=== PATIENT | female | born 1965 | race Two or more races ===

== ENCOUNTER 2019-09-16 19:30 | Emergency (ER) | payer MEDICARE, OTHER ==
[2019-09-16] MEDS ORDERED: Sodium Chloride 0.9% 2.5 ML Syringe FLUSH PRN (19:42)
[2019-09-16] MEDS ORDERED: Sodium Chloride 0.9% 10 ML Syringe FLUSH PRN (19:42)
[2019-09-16] MEDS ORDERED: Sodium Chloride 0.9% 1,000 ML IV SCH (19:45)
--- NOTE | 2019-09-16 19:46 | EDM.PDOC ---
ED HPI GENERAL MEDICAL PROBLEM - General Chief Complaint: Neuro Symptoms/Deficits Stated Complaint: POSSIBLE TIA Time Seen by Provider: 09/16/19 19:40 - History of Present Illness INITIAL COMMENTS - FREE TEXT/NARRATIVE: HISTORY AND PHYSICAL: History of present illness: Patient's 53-year-old white female with past medical history significant for traumatic brain injury who presents with a concern of a episode described as nonverbal. And unresponsive this did not involve any loss of consciousness patient did not have seizure activity witnessed and it did resolve spontaneously on arrival here patient's awake alert and oriented with no complaints and no neurological signs or symptoms. There's been no reported chest pain shortness breath fever chills or other patient states patient never had seizures related to her traumatic brain injury and that the valproic acid she's been prescribed has been for migraines and some slight cognitive challenges post TBI Review of systems: As per history of present illness and below otherwise all systems reviewed and negative. Past medical history: As per history of present illness and as reviewed below otherwise noncontributory. Surgical history: As per history of present illness and as reviewed below otherwise noncontributory. Social history: No reported history of drug or alcohol abuse. Family history: As per history of present illness and as reviewed below otherwise noncontributory. Physical exam: HEENT: Atraumatic, normocephalic, pupils reactive, negative for conjunctival pallor or scleral icterus, mucous membranes moist, throat clear, neck supple, nontender, trachea midline. Lungs: Clear to auscultation, breath sounds equal bilaterally, chest nontender. Heart: S1S2, regular, negative for clicks, rubs, or JVD. Abdomen: Soft, nondistended, nontender. Negative for masses or hepatosplenomegaly. Negative for costovertebral tenderness. Pelvis: Stable nontender. Genitourinary: Deferred. Rectal: Deferred. Extremities: Atraumatic, negative for cords or calf pain. Neurovascular unremarkable. Neuro: Awake, alert, oriented. Cranial nerves II through XII unremarkable. Cerebellum unremarkable. Motor and sensory unremarkable throughout. Exam nonfocal. Diagnostics: CBC CMP EKG chest x-ray CT brain prolactin level UA valproic acid level Therapeutics: IV O2 monitor Impression: #1 transient ischemic attack #2 history of seizure disorder #3 history of traumatic brain injury Definitive disposition and diagnosis as appropriate pending reevaluation and review of above. Headache Pain Score (Numeric/FACES): 2 - Related Data Allergies Allergy/AdvReac Type Severity Reaction Status Date / Time Sulfa (Sulfonamide Allergy Rash Verified 09/16/19 19:58 Antibiotics) ED ROS GENERAL - Review of Systems Review Of Systems: ROS reveals no pertinent complaints other than HPI. ED EXAM, GENERAL - Physical Exam Exam: See Below (See dictation) Course - Vital Signs Last Recorded V/S: Last Vital Signs Temp 36.9 C 09/16/19 19:39 Pulse 80 09/16/19 19:39 Resp 16 09/16/19 19:39 BP 146/71 H 09/16/19 19:39 Pulse Ox 96 09/16/19 19:39 - Orders/Labs/Meds Orders: Active Orders 24 hr Category Date Time Status Blood Glucose Check, Bedside [RC] ONETIME Care 09/16/19 19:41 Active Cardiac Monitoring [RC] . DIRECTED Care 09/16/19 19:41 Active EKG Documentation Completion [RC] STAT Care 09/16/19 19:41 Active Pulse Oximetry [RC] ASDIRECTED Care 09/16/19 19:41 Active COMPREHENSIVE METABOLIC PN,CMP [CHEM] Stat Lab 09/16/19 19:40 Received INR,PT,PROTHROMBIN TIME [COAG] Stat Lab 09/16/19 19:40 Received PROLACTIN [CHEM] Stat Lab 09/16/19 19:40 Received UA RFX LARON AND CULT IF INDIC [URIN] Stat Lab 09/16/19 19:42 Ordered VALPROIC ACID [CHEM] Stat Lab 09/16/19 19:40 Received Sodium Chloride 0.9% [Normal Saline] 1,000 ml Med 09/16/19 19:45 Active IV STAT Sodium Chloride 0.9% [Saline Flush] Med 09/16/19 19:42 Active 10 ml FLUSH ASDIRECTED PRN Sodium Chloride 0.9% [Saline Flush] Med 09/16/19 19:42 Active 2.5 ml FLUSH ASDIRECTED PRN Saline Lock Insert [OM.PC] Stat Oth 09/16/19 19:41 Ordered Medication Orders Sodium Chloride (Normal Saline) 1,000 mls @ 125 mls/hr IV STAT DARA Last Admin: 09/16/19 19:57 Dose: 125 mls/hr Sodium Chloride (Saline Flush) 10 ml FLUSH ASDIRECTED PRN PRN Reason: Keep Vein Open Sodium Chloride (Saline Flush) 2.5 ml FLUSH ASDIRECTED PRN PRN Reason: Keep Vein Open Labs: Laboratory Tests 09/16/19 Range/Units 19:40 WBC 6.54 (4.0-11.0) K/uL RBC 4.34 (4.30-5.90) M/uL Hgb 13.3 (12.0-16.0) g/dL Hct 39.2 (36.0-46.0) % MCV 90.3 (80.0-98.0) fL MCH 30.6 (27.0-32.0) pg MCHC 33.9 (31.0-37.0) g/dL RDW Std Deviation 45.7 (28.0-62.0) fl RDW Coeff of Parvin 14 (11.0-15.0) % Plt Count 266 (150-400) K/uL MPV 10.00 (7.40-12.00) fL Neut % (Auto) 45.7 L (48.0-80.0) % Lymph % (Auto) 42.4 H (16.0-40.0) % [place] % (Auto) 7.0 (0.0-15.0) % Eos % (Auto) 4.4 (0.0-7.0) % Baso % (Auto) 0.5 (0.0-1.5) % Neut # (Auto) 3.0 (1.4-5.7) K/uL Lymph # (Auto) 2.8 H (0.6-2.4) K/uL [place] # (Auto) 0.5 (0.0-0.8) K/uL Eos # (Auto) 0.3 (0.0-0.7) K/uL Baso # (Auto) 0.0 (0.0-0.1) K/uL Nucleated RBC % 0.0 /100WBC Nucleated RBCs # 0 K/uL Meds: Medications Generic Name Dose Route Start Last Admin Trade Name Freq PRN Reason Stop Dose Admin Sodium Chloride 1,000 mls @ 125 mls/hr 09/16/19 19:45 09/16/19 19:57 Normal Saline IV 125 mls/hr STAT DARA Administration Sodium Chloride 10 ml 09/16/19 19:42 Saline Flush FLUSH ASDIRECTED PRN Keep Vein Open Sodium Chloride 2.5 ml 09/16/19 19:42 Saline Flush FLUSH ASDIRECTED PRN Keep Vein Open Discontinued Medications Generic Name Dose Route Start Last Admin Trade Name Roland PRN Reason Stop Dose Admin Aspirin 324 mg 09/16/19 20:09 Aspirin PO 09/16/19 20:10 ONETIME ONE Departure - Departure Time of Disposition: 20:10 Disposition: DC/Tfer to Acute Hospital 02 Condition: Good Clinical Impression: TIA (transient ischemic attack) - Discharge Information Referrals: Stephanie Marin DO [Primary Care Provider] - Forms: ED Department Discharge - My Orders Last 24 Hours: My Active Orders 09/16/19 19:40 COMPREHENSIVE METABOLIC PN,CMP [CHEM] Stat INR,PT,PROTHROMBIN TIME [COAG] Stat PROLACTIN [CHEM] Stat VALPROIC ACID [CHEM] Stat 09/16/19 19:41 Blood Glucose Check, Bedside [RC] ONETIME Cardiac Monitoring [RC] . DIRECTED EKG Documentation Completion [RC] STAT Pulse Oximetry [RC] ASDIRECTED Saline Lock Insert [OM.PC] Stat 09/16/19 19:42 UA RFX LARON AND CULT IF INDIC [URIN] Stat Sodium Chloride 0.9% [Saline Flush] 10 ml FLUSH ASDIRECTED PRN Sodium Chloride 0.9% [Saline Flush] 2.5 ml FLUSH ASDIRECTED PRN 09/16/19 19:45 Sodium Chloride 0.9% [Normal Saline] 1,000 ml IV STAT - Assessment/Plan Last 24 Hours: My Active Orders 09/16/19 19:40 COMPREHENSIVE METABOLIC PN,CMP [CHEM] Stat INR,PT,PROTHROMBIN TIME [COAG] Stat PROLACTIN [CHEM] Stat VALPROIC ACID [CHEM] Stat 09/16/19 19:41 Blood Glucose Check, Bedside [RC] ONETIME Cardiac Monitoring [RC] . DIRECTED EKG Documentation Completion [RC] STAT Pulse Oximetry [RC] ASDIRECTED Saline Lock Insert [OM.PC] Stat 09/16/19 19:42 UA RFX LARON AND CULT IF INDIC [URIN] Stat Sodium Chloride 0.9% [Saline Flush] 10 ml FLUSH ASDIRECTED PRN Sodium Chloride 0.9% [Saline Flush] 2.5 ml FLUSH ASDIRECTED PRN 09/16/19 19:45 Sodium Chloride 0.9% [Normal Saline] 1,000 ml IV STAT
--- NOTE | 2019-09-16 20:07 | CT ---
INDICATION: Dysarthria TECHNIQUE: CT head without contrast. COMPARISON: None. FINDINGS: CSF spaces: Within normal limits for age. Brain parenchyma: Cruz-white differentiation is distinct. No intracranial bleed or mass effect. Mild low-density in the deep white matter. Skull base and calvarium: Patchy ethmoid sinus opacification. The visualized orbits are grossly unremarkable. No skull fractures. IMPRESSION: 1. No intracranial bleed or mass effect. 2. Nonspecific white matter disease, likely microangiopathy. Please note that all CT scans at this facility use dose modulation, iterative reconstruction, and/or weight-based dosing when appropriate to reduce radiation dose to as low as reasonably achievable. Dictated by Eleno Brand MD @ Sep 16 2019 8:04PM Signed by Dr. Eleno Brand @ Sep 16 2019 8:07PM
[2019-09-16] MEDS ORDERED: Aspirin 81 MG Tab.Chew PO ONE (20:09)
[2019-09-16] MEDS ORDERED: Aspirin 81 MG Tab.Chew ONE (20:09)
--- NOTE | 2019-09-16 20:09 | CR ---
INDICATION: Dysarthria TECHNIQUE: Chest 1 view COMPARISON: None FINDINGS: Cardiovascular and mediastinum: Heart size and vasculature are normal in caliber and appearance. Lungs and pleural spaces: Lungs are clear. No sign of infiltrate or mass. No sign of pleural effusion. No pneumothorax. Bones and soft tissues: No significant findings. IMPRESSION: Unremarkable single view chest. Dictated by Eleno Brand MD @ Sep 16 2019 8:04PM Signed by Dr. Eleno Brand @ Sep 16 2019 8:07PM
[2019-09-16 20:23] LABS: BLOOD UREA NITROGEN,BUN 13 mg/dL (7.0-18.0); CARBON DIOXIDE,CO2 23.1 mmol/L (21.0-32.0); CHLORIDE,CL 102 mmol/L (98-107); GLUCOSE RANDOM 84 mg/dL (74-106); POTASSIUM,K 3.6 mmol/L (3.5-5.1); SODIUM,NA 138 mmol/L (136-145)
[2019-09-16 21:32] VITALS: BP 134/89; PULSE 65
== END 2019-09-16 21:10 ==
LOC: MW.ED 19:38
DX: G45.9 Transient cerebral ischemic attack, unspecified (principal); Z82.0 Family history of epilepsy and other diseases of the nervous system; Z88.2 Allergy status to sulfonamides
CPT/HCPCS: 70450; 71045; 80053; 80164; 81001; 84146; 85025; 85610; 93005; 96360; 99285; A9270; J7040